=== PATIENT | male | born 1960 | race Caucasian/White ===

== ENCOUNTER → 2019-01-01 17:35 | Outpatient (CLI) | payer BC, SELFPAY ==
[2019-01-01 18:15] LABS: Basophils % 0.7 % (0.1-2.0); Eosinophils # 0.3 K/mm3 (0.0-0.4); Eosinophils % 4.9 % (0.1-12.0); Hematocrit 43.9 % (42.0-52.0); Hemoglobin 14.7 g/dL (14.1-18.0); Lymphocytes # 1.6 K/mm3 (0.7-4.5); Lymphocytes % 28.9 % (10-50); Mean Corpuscular HGB Conc 33.6 g/dL (31.8-35.4); Mean Corpuscular Hemoglobin 32.6 pg (27.0-31.2); Mean Corpuscular Volume 97.2 fl (80-94); Mean Platelet Volume 9.1 fl (7.4-10.4); Monocytes # 0.3 K/mm3 (0.1-1.0); Monocytes % 5.9 % (1.7-9.3); Neutrophils # 3.3 K/mm3 (1.8-7.8); Neutrophils % 59.5 % (37.0-80.0); Platelet Count 217 K/mm3 (142-424); Red Blood Count 4.52 M/mm3 (4.60-6.20); Red Cell Distribution Width 13.2 % (11.5-17.5); White Blood Count 5.5 K/mm3 (4.8-10.8)
[2019-01-01 20:37] LABS: Alanine Aminotransferase 30 U/L (12-78); Albumin Level 3.8 gm/dL (3.4-5.0); Albumin/Globulin Ratio 1.1 (1.1-1.8); Alkaline Phosphatase 63 U/L (46-116); Anion Gap 14.5 mEq/L (5-15); Aspartate Amino Transferase 17 U/L (15-37); Bilirubin,Total 0.5 mg/dL (0.2-1.0); Blood Urea Nitrogen 17 mg/dL (7-18); Calcium 9.2 mg/dL (8.5-10.1); Carbon Dioxide 27 mmol/L (21.0-32.0); Chloride 109 mmol/L (98-107); Chol/HDL Ratio 3.4 (1-3.5); Cholesterol 169 mg/dL (140-200); Creatinine,Serum 1.04 mg/dL (0.70-1.30); Estimated Glomerular Filt Rate 73 ml/min (>60); Free T4 (Free Thyroxine) 0.74 ng/dl (0.76-1.46); GFR (African American) 88 ML/MIN (>60); Globulin 3.6 gm/dl (1.3-3.2); Glucose 108 mg/dL (74-106); HDL Cholesterol 49 mg/dL (27-67); LDL Cholesterol 99 mg/dL (0-130); Potassium 4.5 mmoL/L (3.5-5.1); Sodium 146 mmol/L (136-145); Thyroid Stimulating Hormone 0.87 uIU/ml (0.358-3.740); Total Protein,Serum 7.4 gm/dL (6.4-8.2); Triglycerides 103 mg/dL (30-200); VLDL Cholesterol 21 mg/dL (0-40)
[2019-01-04 10:53] LABS: Vitamin D 25 Hydroxy 11.8 ng/mL (30.0-100.0)
== END ==
PROVIDERS: Visit Provider Nurse Practitioner Family
DX: R53.83 Other fatigue (principal); M79.89 Other specified soft tissue disorders
CPT/HCPCS: 80053; 80061; 82652; 83880; 84439; 84443; 85025

== ENCOUNTER → 2019-02-01 14:57 | Outpatient (CLI) | payer BC, SELFPAY ==
--- NOTE | 2019-02-01 15:00 | NVE_ITS ---
Venous Exam Indications: 729.81 Swelling of limb. IMPRESSIONS 1. There is no evidence of significant Reflux. 2. No evidence of deep or superficial vein thrombosis involving the left lower extremity 3. 3.1 cm lymph node seen left groin. Left lower extremity venous duplex evaluation. Doppler flow study including spectral analysis, color and busch scale imaging. Location: Vascular laboratory. Patient status: Outpatient. CRITICAL FINDINGS - Reported to: Mayi Beavers's office - 02/01/2019 - 15:20 pm - Neg for DVT Tables: Venous flow and imaging: + +-------+ + Location Overall Flow properties + +-------+ + Left common femoral Patent Normal phasicity; spontaneous; normal augmentation; compressible + +-------+ + Left saphenofemoral junction Patent Compressible + +-------+ + Left profunda femoral Patent Compressible + +-------+ + Left femoral Patent Normal phasicity; spontaneous; normal augmentation; compressible + +-------+ + Left greater saphenous Patent Normal phasicity; spontaneous; normal augmentation; compressible + +-------+ + Left popliteal Patent Normal phasicity; spontaneous; normal augmentation; compressible + +-------+ + Left posterior tibial Patent Compressible + +-------+ + Left peroneal Patent Compressible + +-------+ + Left gastrocnemius Patent Compressible + +-------+ + Left soleal Patent Compressible + +-------+ + (Report amended ) Electronically signed by: Tristian Rios [id number]
== END ==
PROVIDERS: PCP Emergency Medicine; Visit Provider Nurse Practitioner Family
DX: M79.605 Pain in left leg (principal); R60.0 Localized edema
CPT/HCPCS: 93971

== ENCOUNTER → 2019-02-10 06:43 | Outpatient (CLI) | payer BC, SELFPAY ==
--- NOTE | 2019-02-10 06:46 | CA_ITS ---
PROCEDURE: 2-D M-mode and color Doppler study INDICATIONS FOR THE TEST: Chest pain COPD Heart Murmur Tobacco Smoking Palpitations Fatigue Syncope EdemaX HypertensionXDiabetes Mellitus Rheumatic Fever SOBXDOEXObesity Hyperlipidemia Family History HD Additional History ABN EKG PATIENT INFORMATION HEIGHT: 74 WEIGHT:228 GENDER: Male B/P:146/88 2-D/M-MODE INTERPRETATION: 2-D MEASUREMENTS OBSERVED VALUES IN CMS Right Ventricular Dimension (RVDd) 2.7 Interventricular Septum (Thickness)(IVsd) .9 Left Ventricular Internal Dimensions(LVIDd) 5.5 Left Ventricular Posterior Wall (Thickness)(LVPWd) 1.1 Aortic Root 3.5 Aortic Cusp Separation 1.7 Left Atrial Dimensions (LAD) 3.8 2D 1. Left atrium is mildly enlarged, left ventricle is normal size, left ventricle wall thickness is upper limit of the normal, there is preserved left ventricular systolic function, visually estimated ejection fraction 55% with no regional wall motion abnormality. 2. The right atrium and right ventricle are mildly enlarged with normal contractility. 3. The aortic valve is minimally thickened and fibrosed. 4. The mitral and tricuspid valvular grossly normal. 5. The pulmonic valve is poorly visualized. 6. No significant pericardial effusion noted. DOPPLER INTERROGATION: Doppler interrogation of the aortic, mitral and tricuspid valvular presence of mild mitral and tricuspid regurgitation, tricuspid regurgitation jet velocity is inadequate for calculation of the right ventricular systolic pressure, grade 1 diastolic dysfunction seen without tissue Doppler evidence of raised left atrial pressure. CONCLUSION: 1. Mildly enlarged left atrium, normal left ventricular size, visually estimated ejection fraction 55% with no regional wall motion abnormality, grade 1 diastolic dysfunction seen without tissue Doppler evidence of raised left atrial pressure. 2. Mildly enlarged right ventricle with normal contractility. 3. Mild mitral and tricuspid regurgitation 4. No significant pericardial effusion noted.
--- NOTE | 2019-02-10 06:50 | NM_ITS ---
SPECT MYOCARDIAL PERFUSION SCAN, REST AND STRESS: EXERCISE STRESS: [facility] REVIEW QGS EF AND WALL MOTION EVALUATION: QPS - PERFUSION EVALUATION: HISTORY: ABN EKG, EDEMA PROCEDURE: Rest imaging performed after administration of10.88 millicuries Tc MIBI. Dose administered at6:55 a.m., with imaging thereafter. Stress imaging was then performed following 6 minutes 30 seconds of exercise stress. The patient achieved a heart [id number] with projected heart rate of136 . Resting BP159/91 with stress 204/98. At maximum exercise stress,31.1 millicuries Tc MIBI administered at8:45 a.m. with imaging 30 minutes thereafter. FINDINGS: Perfusion Evaluation: The single slice spect images as well as the [facility] bull's-eye data summary were reviewed. Wall Motion and Ejection Fraction Evaluation: Gated SPECT review and analysis used to evaluate these features. There is a 67 % left ventricular ejection fraction. There seems to be good wall motion Patient achieved 82% of predicted heart rate exercise protocol. SPECT images reveal uniform myocardial activity at both stress and rest IMPRESSION: No scintigraphic evidence of exercise-induced myocardial ischemia up to 82% of predicted heart rate accompanied by normal ejection fraction and normal wall motion
--- NOTE | 2019-02-10 07:05 | HMH.ITSHM ---
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 []ASA VITAMIN D BISOPROLOL HYDROCHLOROTHIAZIDE
== END ==
PROVIDERS: PCP Emergency Medicine; Visit Provider Nurse Practitioner Family
DX: R06.02 Shortness of breath (principal); R60.0 Localized edema
CPT/HCPCS: 78452; 93017; 93306; A9502

== ENCOUNTER → 2019-03-05 16:57 | Outpatient (CLI) | payer BC, SELFPAY ==
[2019-03-05 17:47] LABS: Basophils # 0.1 K/mm3 (0-0.2); Basophils % 1.1 % (0.1-2.0); Eosinophils # 0.5 K/mm3 (0.0-0.4); Eosinophils % 7.7 % (0.1-12.0); Hematocrit 40.6 % (42.0-52.0); Hemoglobin 12.9 g/dL (14.1-18.0); Lymphocytes # 1.8 K/mm3 (0.7-4.5); Lymphocytes % 27.8 % (10-50); Mean Corpuscular HGB Conc 31.7 g/dL (31.8-35.4); Mean Corpuscular Hemoglobin 30.7 pg (27.0-31.2); Mean Corpuscular Volume 96.7 fl (80-94); Mean Platelet Volume 8.8 fl (7.4-10.4); Monocytes # 0.4 K/mm3 (0.1-1.0); Monocytes % 6.6 % (1.7-9.3); Neutrophils # 3.6 K/mm3 (1.8-7.8); Neutrophils % 56.8 % (37.0-80.0); Platelet Count 204 K/mm3 (142-424); Red Cell Distribution Width 13.6 % (11.5-17.5); White Blood Count 6.3 K/mm3 (4.8-10.8)
[2019-03-05 18:20] LABS: Erythrocyte Sedimentation Rate 18 mm/hr (0-20)
[2019-03-05 18:27] LABS: Anion Gap 13.5 mEq/L (5-15); Blood Urea Nitrogen 15 mg/dL (7-18); Calcium 8.8 mg/dL (8.5-10.1); Carbon Dioxide 29 mmol/L (21.0-32.0); Chloride 106 mmol/L (98-107); Creatinine,Serum 1.06 mg/dL (0.70-1.30); Estimated Glomerular Filt Rate 71 ml/min (>60); GFR (African American) 86 ML/MIN (>60); Glucose 108 mg/dL (74-106); Potassium 4.5 mmoL/L (3.5-5.1); Sodium 144 mmol/L (136-145)
[2019-03-05 18:37] LABS: C-Reactive Protein < 0.2 mg/L (0.0-0.9)
== END ==
PROVIDERS: Visit Provider Emergency Medicine
DX: R60.9 Edema, unspecified (principal)
CPT/HCPCS: 80048; 85025; 85651; 86140

== ENCOUNTER → 2019-03-17 09:31 | Outpatient (CLI) | payer BC, SELFPAY ==
--- NOTE | 2019-03-17 09:36 | CT_ITS ---
CT abdomen pelvis w con CLINICAL INDICATION: ITS.REASON: enlarged lymph nodes ORDERING PHYSICIAN: Galo Putnam MD PATIENT AGE: 58 years COMPARISON: None TECHNIQUE: Contrast Used:75ml Optiray 350 Oral Contrast: None Axial images obtained with sagittal and coronal reformats. All CT scans at the facility use one or more dose reduction, viz: automated exposure control, ma/kV adjustment per patient size (including targeted exams where dose is matched to indication, i.e. head), or iterative reconstruction technique. FINDINGS: There is a 5 mm noncalcified nodule in the left lung base posteriorly incompletely imaged. The liver, gallbladder, spleen, adrenal glands, and pancreas have an unremarkable.. There is a 2.8 cm right renal cyst superiorly and there are small left parapelvic renal cyst. No renal or ureteral calculi. No intestinal obstruction or free air. There are few small lymph nodes in the retroperitoneum. There is diverticulosis of the transverse colon with extensive diverticulosis of the descending and sigmoid colon. No evidence of diverticulitis. The urinary bladder wall is somewhat thickened and in part may be due to nondistention. Cystitis would be included in the differential diagnosis. There are scattered lymph nodes present in both inguinal regions. There is a 2 x 1.4 x 3.6 cm node in the left external iliac area. There is a 2.5 x 1.7 cm node in the right external iliac area. Small bilateral inguinal nodes are present. The largest node on the right 2.5 x 1.4 cm. The largest left inguinal lymph node is 3 x 6 cm. The nodes are more prominent in the left inguinal region than the right. No acute bony anomalies. IMPRESSION: 1. Bilateral inguinal and external iliac adenopathy. No adenopathy evident within the abdomen or retroperitoneum. The nodes could be reactive in nature. One cannot exclude the possibility of a lymphoproliferative process such as lymphoma. Ultrasound-guided biopsy could be performed of the left inguinal lymph nodes of clinically desired. 2. Mild thickening of the urinary bladder which may be due to nondistention or cystitis. 3. Colonic diverticulosis. 4. Nonspecific 5 mm noncalcified nodule left lower lobe incompletely imaged. Consider 6-12 month follow-up
== END ==
PROVIDERS: PCP Emergency Medicine; Visit Provider Emergency Medicine
DX: R59.0 Localized enlarged lymph nodes (principal)
CPT/HCPCS: 74177; Q9967

== ENCOUNTER → 2019-04-14 09:31 | Outpatient (CLI) | payer BC, SELFPAY ==
--- NOTE | 2019-04-14 09:35 | US_ITS ---
US biopsy guidance HISTORY: Left inguinal adenopathy ITS.REASON: left inguinal lymph node ORDERING PHYSICIAN: KEVIN Barney PATIENT AGE: 58 years COMPARISON: None TECHNIQUE: Following obtaining informed consent, using aseptic technique and local anesthesia with buffered lidocaine, fine-needle aspiration was performed of the lymph node of interest in the left inguinal region using sonographic guidance. 2 passes were made into the nodule with a 21-gauge needle. Specimen was given to cytology. Following this, a skin neck was performed and an 18-gauge core biopsy needle was inserted. 3 cores were obtained to submitted in formalin and one in the RPMI solution The patient tolerated the procedure well without evidence of immediate complications and left the ultrasound suite in stable condition. Cytology and pathology are pending IMPRESSION: Uneventful ultrasound-guided biopsy of left inguinal lymph nodes
== END ==
PROVIDERS: PCP Emergency Medicine; Visit Provider Physician Assistant
DX: R59.0 Localized enlarged lymph nodes (principal)
CPT/HCPCS: 10005; 76882; 76942

== ENCOUNTER → 2022-08-05 10:45 | Outpatient (CLI) | payer BC, SELFPAY ==
[2022-07-31 18:29] LABS: Basophils # 0.1 K/mm3 (0-0.2); Basophils % 1.2 % (0.1-2.0); Eosinophils # 0.3 K/mm3 (0.0-0.4); Eosinophils % 5.6 % (0.1-12.0); Hematocrit 45.1 % (42.0-52.0); Hemoglobin 14.7 g/dL (14.1-18.0); Lymphocytes # 1.9 K/mm3 (0.7-4.5); Lymphocytes % 32.4 % (10-50); Mean Corpuscular HGB Conc 32.5 g/dL (31.8-35.4); Mean Corpuscular Hemoglobin 33.4 pg (27.0-31.2); Mean Platelet Volume 9.5 fl (7.4-10.4); Monocytes # 0.4 K/mm3 (0.1-1.0); Monocytes % 6.3 % (1.7-9.3); Neutrophils # 3.2 K/mm3 (1.8-7.8); Neutrophils % 54.4 % (37.0-80.0); Platelet Count 220 K/mm3 (142-424); Red Blood Count 4.38 M/mm3 (4.60-6.20); Red Cell Distribution Width 13.2 % (11.5-17.5); White Blood Count 5.8 K/mm3 (4.8-10.8)
[2022-07-31 19:36] LABS: Alanine Aminotransferase 28 U/L (12-78); Albumin Level 4.2 g/dl (3.5-5.0); Albumin/Globulin Ratio 1.6 (1.1-1.8); Alkaline Phosphatase 94 U/L (38-126); Anion Gap 14.2 mEq/L (5-15); Aspartate Amino Transferase 29 U/L (17-59); Bilirubin,Total 0.5 mg/dl (0.2-1.3); Blood Urea Nitrogen 17 mg/dl (9-20); Calcium 9.8 mg/dl (8.4-10.2); Carbon Dioxide 28 mmol/L (22.0-30.0); Chloride 102 mmol/L (98-107); Chol/HDL Ratio 3.1 (1-3.5); Cholesterol 187 mg/dl (140-200); Estimated Glomerular Filt Rate 75 ml/min (>60); GFR (African American) 91 ML/MIN (>60); Globulin 2.7 g/dL (1.3-3.2); Glucose 74 mg/dl (74-100); HDL Cholesterol 60 mg/dl (40-60); Potassium 4.2 mmoL/L (3.5-5.1); Sodium 140 mmol/L (136-145); Total Protein,Serum 6.9 g/dl (6.3-8.2); Triglycerides 126 mg/dl (30-150); VLDL Cholesterol 25 mg/dL (0-40)
[2022-07-31 19:53] LABS: Free T4 (Free Thyroxine) 1.01 ng/dl (0.78-2.19)
[2022-07-31 19:54] LABS: 25-OH Vitamin D, Total 54.1 ng/mL (30-100); Direct LDL Cholesterol 105.48 mg/dL (100-129)
[2022-07-31 20:07] LABS: Prostate Specific Ag Screen 0.6 ng/ml (0.0-4.0); Thyroid Stimulating Hormone 2.73 uIU/mL (0.465-4.68)
[2022-08-05 13:37] LABS: Folate 4.78 ng/mL; Vitamin B12 195 pg/mL (239-931)
== END ==
PROVIDERS: Nurse Practitioner Family; PCP Emergency Medicine; Visit Provider Emergency Medicine
DX: E03.9 Hypothyroidism, unspecified (principal); R53.83 Other fatigue; R25.1 Tremor, unspecified; Z12.5 Encounter for screening for malignant neoplasm of prostate; E66.3 Overweight; Z68.28 Body mass index [BMI] 28.0-28.9, adult
CPT/HCPCS: 36415; 80053; 80061; 82306; 82607; 82746; 84439; 84443; 85025; G0103

== ENCOUNTER → 2022-09-13 14:30 | Outpatient (CLI) | payer BC, SELFPAY ==
[2022-09-13 16:17] LABS: Vitamin B12 938 pg/mL (239-931)
== END ==
PROVIDERS: PCP Emergency Medicine; Visit Provider Emergency Medicine
DX: E53.8 Deficiency of other specified B group vitamins (principal)
CPT/HCPCS: 36415; 82607

== ENCOUNTER → 2023-06-16 12:49 | Outpatient (CLI) | payer BC, SELFPAY ==
--- NOTE | 2023-06-16 13:01 | XR_ITS ---
FINAL REPORT CLINICAL HISTORY: Left foot pain x 2 years, no injury COMPARISON: None FINDINGS: LEFT FOOT Three views of the left foot demonstrate healed or healing fracture deformity of the distal 4th metatarsal. There is no intraarticular extension. The visualized joint spaces are normally aligned. The soft tissues are unremarkable. IMPRESSION: Healed or healing fracture deformity distal 4th metatarsal. Reviewed, Interpreted and Dictated by Brett Du MD Transcribed by Sarah Gotti Authenticated and [facility]
== END ==
PROVIDERS: PCP Emergency Medicine; Visit Provider Nurse Practitioner Family
DX: M79.672 Pain in left foot (principal)
CPT/HCPCS: 73630

== ENCOUNTER → 2023-09-02 13:26 | Outpatient (CLI) | payer BC, SELFPAY ==
[2023-09-02 14:12] LABS: Basophils % 0.7 % (0.1-2.0); Eosinophils # 0.3 K/mm3 (0.0-0.4); Eosinophils % 4.7 % (0.1-12.0); Lymphocytes # 1.7 K/mm3 (0.7-4.5); Lymphocytes % 24.3 % (10-50); Mean Corpuscular HGB Conc 32.7 g/dL (31.8-35.4); Mean Corpuscular Hemoglobin 34.1 pg (27.0-31.2); Mean Corpuscular Volume 104.4 fl (80-94); Mean Platelet Volume 8.6 fl (7.4-10.4); Monocytes # 0.3 K/mm3 (0.1-1.0); Monocytes % 4.5 % (1.7-9.3); Neutrophils # 4.5 K/mm3 (1.8-7.8); Neutrophils % 65.8 % (37.0-80.0); Platelet Count 231 K/mm3 (142-424); Red Blood Count 4.69 M/mm3 (4.60-6.20); Red Cell Distribution Width 12.9 % (11.5-17.5); White Blood Count 6.8 K/mm3 (4.8-10.8)
[2023-09-02 14:17] LABS: Chloride 103 mmol/L (98-107); Potassium 4.4 mmoL/L (3.5-5.1); Sodium 138 mmol/L (136-145)
[2023-09-02 14:20] LABS: Alanine Aminotransferase 24 U/L (12-78); Albumin Level 4.1 g/dl (3.5-5.0); Albumin/Globulin Ratio 1.3 (1.1-1.8); Alkaline Phosphatase 65 U/L (38-126); Anion Gap 8.4 mEq/L (5-15); Aspartate Amino Transferase 27 U/L (17-59); Bilirubin,Total 0.7 mg/dl (0.2-1.3); Blood Urea Nitrogen 12 mg/dl (9-20); Calcium 9.1 mg/dl (8.4-10.2); Carbon Dioxide 31 mmol/L (22.0-30.0); Estimated Glomerular Filt Rate 75 ml/min (>60); GFR (African American) 91 ML/MIN (>60); Globulin 3.2 g/dL (1.3-3.2); Glucose 144 mg/dl (74-100); Total Protein,Serum 7.3 g/dl (6.3-8.2)
[2023-09-02 15:17] LABS: Thyroid Stimulating Hormone 0.66 uIU/mL (0.465-4.68)
[2023-09-02 15:52] LABS: Vitamin B12 821 pg/mL (239-931)
[2023-09-02 15:53] LABS: Folate 6.22 ng/mL
[2023-09-09 00:08] LABS: Vitamin B1 254.9 nmol/L (66.5-200.0)
== END ==
PROVIDERS: PCP Internal Medicine; Visit Provider Nurse Practitioner Family
DX: E53.8 Deficiency of other specified B group vitamins (principal); F10.10 Alcohol abuse, uncomplicated; F12.90 Cannabis use, unspecified, uncomplicated; F41.9 Anxiety disorder, unspecified; I10 Essential (primary) hypertension; R25.1 Tremor, unspecified
CPT/HCPCS: 36415; 80053; 82607; 82746; 84425; 84443; 85025

== ENCOUNTER → 2023-09-09 15:43 | Outpatient (CLI) | payer BC, SELFPAY ==
--- NOTE | 2023-09-09 15:50 | XR_ITS ---
FINAL REPORT CLINICAL HISTORY: Right Hallux R/O Osteo FINDINGS: Right foot Three views were obtained. There is no acute fracture or dislocation. 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 There is marked hammertoe deformity of the 2nd digit. There is an ununited fracture fragment at the base of the 5th metatarsal. No soft tissue abnormality is identified. IMPRESSION: Degenerative and chronic appearing findings. Reviewed, Interpreted and Dictated by Brett Du MD Transcribed by Gala Shanks Authenticated and . [facility]
== END ==
PROVIDERS: PCP Nurse Practitioner Family; Visit Provider Nurse Practitioner Family
DX: L84 Corns and callosities (principal)
CPT/HCPCS: 73630

== ENCOUNTER → 2023-09-16 08:22 | Outpatient (CLI) | payer BC, SELFPAY ==
--- NOTE | 2023-09-16 08:27 | XR_ITS ---
FINAL REPORT CLINICAL HISTORY: foot pain FINDINGS: Left foot Three views were obtained. There is no acute fracture or dislocation. There is a healed fracture of the distal 4th metatarsal. The joint spaces appear normal. No soft tissue abnormality is identified. IMPRESSION: No acute process. Reviewed, Interpreted and Dictated by Brett Du MD Transcribed by Gala Shanks Authenticated and [facility]
== END ==
PROVIDERS: PCP Nurse Practitioner Family; Visit Provider Nurse Practitioner Family
DX: M79.672 Pain in left foot (principal)
CPT/HCPCS: 73630